=== PATIENT | female | born 1980 ===

== ENCOUNTER 2025-07-02 14:34 | Outpatient (REF) | payer SELFPAY ==
--- NOTE | 2025-07-02 14:00 | PAPFT_PTH ---
PATIENT: Swathi Nagy LOC: [facility] U#:[id number] AGE/SX: 45/F ROOM: RE07/02/[address]: Carley Garcia MD : 1980 BED: DIS: 07/02/2025 SPEC #: [id number] RECD: 07/02/25 18:03 STATUS: TONO REAddi #: [id number] ANDREWS: 07/02/25 14:[address]: Carley Garcia DEPT: [facility] Cytology RECD BY: Marilynn Starkey ENTERED: 07/02/25 18:03 SP TYPE: PAPFT OTHR DR: Unknown,Unknown Tissues: 1 - CX/ENDOCX FOR PAP SMEARS Procedures: PAP THIN PREP/[facility] Screening HPV DNA PROBE Comments: [id number] (HPV 16 & 18/45)
== END 2025-07-02 14:35 | disposition home or self-care (01) ==
LOC: LBN 14:34
PROVIDERS: Visit Provider Obstetrics & Gynecology
DX: Z12.4 Encounter for screening for malignant neoplasm of cervix (principal)
CPT/HCPCS: 88142; 87624

== ENCOUNTER 2025-07-02 14:54 | Outpatient (CLI) | payer SELFPAY ==
[2025-07-02 15:29] LABS: Abs Immature Grans 0.02 10^3/uL (0.0-0.06); HCT 38.0 % (36.0-46.0); HGB 13.6 g/dL (11.2-15.7); Immature Grans % 0.3 %; MCH 34.2 pg (27.0-33.0); MCHC 35.8 % (32.0-36.0); MCV 96 fL (80-95); MPV 11.0 fL (8.0-11.0); Platelet Count 218 10^3/uL (130-400); RBC 3.98 10^6/uL (3.93-5.22); RDW 12.8 % (11.7-14.6); RDW-SD 45.1 fL; WBC 7.46 10^3/uL (4.4-10.8)
[2025-07-02 16:52] LABS: ALT 26 U/L (10-49); AST 29 U/L (<34); Albumin 4.2 g/dL (3.4-5.0); Alkaline Phosphatase 46 U/L (46-116); Anion Gap 8.1 mmol/L (3-11); BUN 22 mg/dL (9-23); Bilirubin, Total 0.20 mg/dL (0.2-1.2); CO2 29.9 mmol/L (20.0-31.0); Calcium 8.8 mg/dL (8.3-10.6); Chloride 103 mmol/L (98-107); Glucose 84 mg/dL (74-106); Potassium 4.0 mmol/L (3.5-5.1); Sodium 141 mmol/L (136-145); Total Protein 6.7 g/dL (5.7-8.2)
[2025-07-02 16:55] LABS: TSH (W/Ref FT4) 3.40 uIU/mL (0.55-4.78)
[2025-07-02 19:04] LABS: Vitamin D 25 Total 43 ng/mL (30-100)
== END 2025-07-02 14:55 | disposition home or self-care (01) ==
LOC: LBO 14:54
PROVIDERS: Visit Provider Obstetrics & Gynecology
DX: N92.0 Excessive and frequent menstruation with regular cycle (principal); N95.1 Menopausal and female climacteric states; L65.9 Nonscarring hair loss, unspecified
CPT/HCPCS: 36415; 80053; 82306; 84443; 85025

== ENCOUNTER → 2025-07-30 00:18 | Outpatient (CLI) | payer SELFPAY ==
--- NOTE | 2025-07-30 12:28 | DI.MAMMO_ITS ---
Exam(s) MAMMO SCREENING EXAM: MAMMO SCREENING CLINICAL HISTORY: screening,Z12.31. TECHNIQUE: Bilateral full field digital CC and MLO mammographic images were obtained with 3D tomosynthesis and utilizing computer aided detection (CAD). COMPARISON: None. This is a baseline screening mammogram on this 45-year-old.. FINDINGS: Fibroglandular tissue pattern is heterogeneously dense, this somewhat decreasing the sensitivity of the mammogram for finding hidden underlying lesions. There are no CAD designations. There are no obvious spiculated masses nor malignant appearing microcalcification groups. There is no significant architectural distortion nor skin thickening-retraction. IMPRESSION: Dense bilateral fibroglandular tissue. No obvious radiographic evidence of malignancy. BI-RADS Category 1 - Negative Breast Density - Category C - The breast are heterogeneously dense, which may obscure small masses. Breast density Category C or D implies that the patient has dense breast tissue. Dense breast tissue can make it harder to find cancer on a mammogram. Dense breast tissue is also associated with an increased risk of breast cancer. This information about the result of the mammogram report was provided to the patient to raise their awareness. Use this report when you speak with the patient about their risks for breast cancer, which includes their family history. At that time, you may recommend additional screening tests (Ultrasound or MRI) as these tests may add significant information. A negative radiographic report should not delay biopsy if a dominant or clinically suspicious mass is present. Up to ten percent of cancers are not identified on mammography. A negative report may reinforce clinical impression. Adenosis and dense breasts may obscure an underlying neoplasm. False positive reports average 6 to 10%. Patient will receive a letter notifying them of these results.
== END ==
LOC: DI 00:18
PROVIDERS: Visit Provider Obstetrics & Gynecology
DX: Z12.31 Encounter for screening mammogram for malignant neoplasm of breast (principal)
CPT/HCPCS: 77063; 77067